=== PATIENT | male | born 1980 | race Caucasian/White ===

== ENCOUNTER 2017-02-24 17:54 | Emergency (ER) | payer OTHER ==
[~2017-02-24] VITALS: Ht 175.3 cm; Wt 74.8 kg
--- NOTE | 2017-02-24 17:54 | NUR ---
Patient BIBA [facility], transferred to bed 4. RN evaluating patient at bedside.
[2017-02-24 17:58] VITALS: BP 117/72
--- NOTE | 2017-02-24 18:05 | NUR ---
36/M BIBA FROM [facility] C/O POSSIBLE INGESTION OF EDIBLE MARIJUANA X 2 HOURS AGO TODAY; PT A&OX4 AT THIS TIME, PERRL, BL LUNG SOUNDS CLEAR, RR EVEN/UNLABORED, SKIN IS WARM/DRY/INTACT AT THIS TIME. PT STATES INGESTED "SOME EDIBLE PURCHASED FROM [facility] AND TRIED IT FOR THE FIRST TIME"; PT DENIES PAIN, BUT VOMITTED UPON ARRIVAL TO ER; PT STATES FEELS BETTER AFTER VOMITING; ABDOMEN SOFT, NON-TENDER, ACTIVE BOWEL SOUNDS X 4 QUADRANTS, BUT DENIES DIARRHEA AT THIS TIME. PT DENIES ANY MEDICAL HISTORY; PT RESTING IN BED W/ HOB ELEVATED AND IN LOWEST POSITION; POSITIONED FOR COMFORT; ER MD MADE AWARE OF STATUS. WILL CONTINUE TO MONITOR.
[2017-02-24] MEDS ORDERED: NACL 0.9% 1,000 ML IV ONE ×2 (18:25→19:15)
[2017-02-24] MEDS ORDERED: ONDANSETRON 4 MG/2 ML VIAL IVP ONE ×2 (18:25→19:15)
--- NOTE | 2017-02-24 19:11 | NUR ---
Pt report given to LULU FLORES. Transfer of care at this time.
[2017-02-24] MEDS ORDERED: ONDANSETRON 4 MG/2 ML VIAL ONE (19:16)
[2017-02-24 20:10] VITALS: BP 122/78
--- NOTE | 2017-02-24 20:10 | NUR ---
Patient discharged with v/s stable. Written and verbal after care instructions given and explained. Patient alert, oriented and verbalized understanding of instructions. Ambulatory with steady gait. All questions addressed prior to discharge. ID band removed. Patient advised to follow up with PMD TOMORROW OR RETURN TO ER IF CONDITION WORSENS. Rx of ZOFRAN given. Patient educated on indication of medication including possible reaction and side effects. Opportunity to ask questions provided and answered.
== END 2017-02-24 20:10 | disposition home or self-care (01) ==
LOC: MED 17:54
DX: F12.10 Cannabis abuse, uncomplicated (principal); R11.2 Nausea with vomiting, unspecified
CPT/HCPCS: 93005; 96374; 99284; J2405; J7030